=== PATIENT | male | born 1960 | race Caucasian/White ===

== ENCOUNTER 2018-10-27 20:20 | Emergency (ER) | payer BC ==
[2018-10-27 20:30] VITALS: BP 158/95
== END 2018-10-27 20:55 | disposition left against medical advice (07) ==
LOC: ED 20:20
DX: R10.9 Unspecified abdominal pain (principal); Z53.21 Procedure and treatment not carried out due to patient leaving prior to being seen by health care provider

== ENCOUNTER 2018-10-27 22:38 | Emergency (ER) | payer BC ==
[2018-10-27 23:24] LABS: Urine Appearance Cloudy; Urine Blood 1+ (Negative); Urine Color Yellow; Urine Ketones Negative (Negative); Urine Protein Negative (Negative); Urine Red Blood Cell 1+(3-5/hpf) (Absent); Urine Specific Gravity 1.024 (1.010-1.030); Urine Urobilinogen Negative (Negative); Urine White Blood Cell Trace(0-5/hpf) (Absent)
[2018-10-27] MEDS ORDERED: NS 0.9% 1000 ML* 1,000 ML IV ONE (23:49)
[2018-10-27] MEDS ORDERED: fentaNYL* 50 MCG/ML 2 ML VIAL (100 MCG VIAL) IV SLOW PU ONE (23:49)
[2018-10-27] MEDS ORDERED: Ketorolac INJ* 30 MG/ML 1 ML VIAL IV PUSH ONE (23:50)
[2018-10-27] MEDS ORDERED: Ondansetron INJ* 2 MG/ML VIAL IV ONE (23:50)
--- NOTE | 2018-10-27 23:57 | ED ---
Abdominal Pain/Male - HPI Summary HPI Summary: This patient is a 58 year old M presenting to [facility] with a chief complaint of LLQ abd pain radiating to L flank that prior to arrival. The patient rates the pain 9/10 in severity. Symptoms aggravated by nothing. Symptoms alleviated by nothing. Patient reports nausea, vomiting, and difficulty urinating. - History of Current Complaint Chief Complaint: EDFlankPain Stated Complaint: ABD PAIN Time Seen by Provider: 10/27/18 23:40 Hx Obtained From: Patient Onset/Duration: Sudden Onset, Lasting Hours, Still Present Timing: Constant Severity Initially: Severe Severity Currently: Severe Pain Intensity: 9 Pain Scale Used: 0-10 Numeric Location: Discrete At: LLQ Radiates: Yes Radiates to: Flank Aggravating Factor(s): Nothing Alleviating Factor(s): Nothing Associated Signs And Symptoms: Positive: Urinary Symptoms, Nausea, Vomiting - Allergies/Home Medications Allergies/Adverse Reactions: Allergies Allergy/AdvReac Type Severity Reaction Status Date / Time niacin Allergy Flushing Verified 10/27/18 22:46 Penicillins Allergy Hives Verified 10/27/18 22:46 PMH/Surg Hx/FS Hx/Imm Hx Previously Healthy: No Respiratory History: Reports: Hx Asthma, Other Respiratory Problems/Disorders - pt states pn x 2 in past 10 yrs History: Denies: Hx Kidney Stones Infectious Disease History: No Infectious Disease History: Denies: Traveled Outside the [place] in Last 30 Days - Family History Known Family History: Negative: Seizure Disorder - Social History Occupation: Employed Full-time Lives: With Family Alcohol Use: Unknown Hx Substance Use: No Substance Use Type: Reports: None Hx Tobacco Use: No Smoking Status (MU): Never Smoked Tobacco Review of Systems Positive: Abdominal Pain, Vomiting, Nausea Genitourinary: Other - Positive difficulty urinating All Other Systems Reviewed And Are Negative: Yes Physical Exam - Summary Physical Exam Summary: VITAL SIGNS: Reviewed. GENERAL: Patient is a well-developed and nourished male who is lying comfortable in the stretcher. Patient is not in any acute respiratory distress. HEAD AND FACE: No signs of trauma. No ecchymosis, hematomas or skull depressions. No sinus tenderness. EYES: PERRLA, EOMI x 2, No injected conjunctiva, no nystagmus. EARS: Hearing grossly intact. Ear canals and tympanic membranes are within normal limits. MOUTH: Oropharynx within normal limits. NECK: Supple, trachea is midline, no adenopathy, no JVD, no carotid bruit, no c- spine tenderness, neck with full ROM. CHEST: Symmetric, no tenderness at palpation LUNGS: Clear to auscultation bilaterally. No wheezing or crackles. CVS: Regular rate and rhythm, S1 and S2 present, no murmurs or gallops appreciated. ABDOMEN: Soft, non-tender. Distention. No rebound no guarding, and no masses palpated. Bowel sounds are normal. EXTREMITIES: FROM in all major joints, no edema, no cyanosis or clubbing. NEURO: Alert and oriented x 3. No acute neurological deficits. Speech is normal and follows commands. SKIN: Dry and warm Triage Information Reviewed: Yes Vital Signs On Initial Exam: Initial Vitals Temp Pulse Resp BP Pulse Ox 98 F 94 16 140/105 95 10/27/18 22:44 10/27/18 22:44 10/27/18 22:44 10/27/18 22:44 10/27/18 22:44 Vital Signs Reviewed: Yes Diagnostics - Vital Signs Vital Signs Temp Pulse Resp BP Pulse Ox 10/27/18 22:44 98 F 94 16 140/105 95 - Laboratory Lab Results: Lab Results 10/27/18 Range/Units 23:11 Urine Color Yellow Urine Appearance Cloudy Urine pH 5.0 (5-9) Ur Specific [place] 1.024 (1.010-1.030) Urine Protein Negative (Negative) Urine Ketones Negative (Negative) Urine Blood 1+ A (Negative) Urine Nitrate Negative (Negative) Urine Bilirubin Negative (Negative) Urine Urobilinogen Negative (Negative) Ur Leukocyte Esterase Negative (Negative) Urine WBC (Auto) Trace(0-5/hpf) (Absent) Urine RBC (Auto) 1+(3-5/hpf) A (Absent) Ur Squamous Epith Cells Present A (Absent) Urine Bacteria Absent (Absent) Urine Glucose Negative (Negative) Result Diagrams: 10/27/18 23:58 10/27/18 23:58 Lab Statement: Any lab studies that have been ordered have been reviewed, and results considered in the medical decision making process. - CT CT Abdomen and Pelvis CT Interpretation Completed By: Radiologist Summary of CT Findings: CT abdomen and pelvis reveals, per radiologist, 1. 2 mm calcified stone located in the distal left ureter. This is at the ureterovesical junction. This causes moderate left-sided hydronephrosis with perinephric stranding. 2. Multiple small calcified stones within the collecting system of both kidneys and are nonobstructing. 3. Consolidation of the right lower lung. This raises the possibility of a pneumonia. Suggest further correlation with the consideration of a two-view chest. Suggest further followup. 4. Fatty infiltration of the liver. ED physician has reviewed this radiology report. Re-Evaluation - Re-Evaluation First Eval Re-Evaluation Time: 02:35 Change: Improved Comment: Discussed results and plan of care with patient. Pt is pain free at this time Abdominal Pain Fem Course/Dx - Course Course Of Treatment: This patient is a 58 year old M presenting to [facility] with a chief complaint of LLQ abd pain radiating to L flank that prior to arrival. Physical Exam Findings: Distended abdomen. CT abdomen and pelvis reveals, per radiologist, 1. 2 mm calcified stone located in the distal left ureter. This is at the ureterovesical junction. This causes moderate left-sided hydronephrosis with perinephric stranding. 2. Multiple small calcified stones within the collecting system of both kidneys and are nonobstructing. 3. Consolidation of the right lower lung. This raises the possibility of a pneumonia. Suggest further correlation with the consideration of a two-view chest. Suggest further followup. 4. Fatty infiltration of the liver. Bloodwork and UA obtained. In the ED course the patient was given fentanyl, Toradol, fluids, Zofran, Flomax, and Levaquin. Patient will be discharged with prescription for Levaquin, Percocet, and Flomax and with follow up from PCP. The patient is agreeable with this plan. - Diagnoses Provider Diagnoses: Ureteral stone, Pneumonia, Renal colic Discharge - Sign-Out/Discharge Documenting (check all that apply): Patient Departure - Discharge home - Discharge Plan Condition: Stable Disposition: HOME Prescriptions: Levofloxacin TAB* [Levaquin TAB*] 750 mg PO DAILY #7 tab oxyCODONE/Acetamin 5/325 MG* [Percocet 5/325 TAB*] 1 tab PO Q6H PRN #14 tab MDD 4 PRN Reason: Pain Tamsulosin CAP* [Flomax CAP*] 0.4 mg PO DAILY #7 cap Patient Education Materials: Renal Colic (ED), Ureteral Stones (ED), Pneumonia (ED) Referrals: Sonal Guevara MD [Primary Care Provider] - Additional Instructions: RETURN TO THE EMERGENCY DEPARTMENT FOR NEW OR WORSENING SYMPTOMS - Attestation Statements Document Initiated by Scribe: Yes Documenting Scribe: Cecile Rivera Provider For Whom Scribe is Documenting (Include Credential): Dr. Renny Zamora MD Scribe Attestation: Cecile Herndon, scribed for Dr. Renny Zamora MD on 10/28/18 at 0239. Status of Scribe Document: Ready
[2018-10-28 00:04] LABS: ABS Basophils 0.1 10^3/ul (0-0.2); ABS Eosinophils 0.2 10^3/ul (0-0.6); ABS Lymphocytes 1.9 10^3/ul (1.0-4.8); ABS Monocytes 1.1 10^3/ul (0-0.8); ABS Neutrophils 11.8 10^3/ul (1.5-7.7); ABS Nucleated RBC 0 10^3/ul; Eosinophil % 1.1 %; Hematocrit 47 % (42-52); Hemoglobin 15.6 g/dl (14.0-18.0); Lymphocyte % 12.8 %; Mean Corpuscular HGB Conc 33 g/dl (31-36); Mean Corpuscular Hemoglobin 29 pg (27-31); Mean Corpuscular Volume 88 fL (80-94); Mean Platelet Volume 7.1 fL (7.4-10.4); Nucleated Red Blood Cells % 0; Platelet Count 289 10^3/ul (150-450); Red Blood Count 5.34 10^6/ul (4.00-5.40); Red Cell Distribution Width 13 % (10.5-15); White Blood Count 15.2 10^3/ul (3.5-10.8)
[2018-10-28 00:13] LABS: INR 0.98 (0.77-1.02)
[2018-10-28 00:26] LABS: EGFR Non-African American 48.9 (>60)
[2018-10-28] MEDS ORDERED: Levofloxacin TAB* 250 MG PO ONE (02:31)
[2018-10-28] MEDS ORDERED: Tamsulosin CAP* 0.4 MG PO ONE (02:31)
[2018-10-28 03:24] VITALS: BP 122/73
== END 2018-10-28 03:23 | disposition home or self-care (01) ==
LOC: ED 22:38
DX: N13.2 Hydronephrosis with renal and ureteral calculous obstruction (principal); J18.1 Lobar pneumonia, unspecified organism; K76.0 Fatty (change of) liver, not elsewhere classified; Z88.0 Allergy status to penicillin; Z88.8 Allergy status to other drugs, medicaments and biological substances
CPT/HCPCS: 36415; 74176; 80053; 81003; 81015; 82150; 83690; 83735; 85025; 85610; 85730; 86140; 87040; 87086; 96374; 96375; 99282; A9270-GY; J1885; J2405; J3010

== ENCOUNTER 2022-02-03 08:20 | Inpatient (IN) ==
[~2022-02-03 08:20] MED LIST: Buffered Lidocaine 1% SYRIN 1 ml INTRADERM ONE; Famotidine IV 10 MG/ML 2 ml VIAL (20 mg) IV ONE; Lactated Ringers 1000 ml BAG 1,000 ML IV SCH
[2022-02-03] MEDS ORDERED: Heparin 5000 UNITS/ML 1 mL VIAL ONE (08:26)
[2022-02-03] MEDS ORDERED: Scopolamine 1 mg/72hr PATCH ONE (08:26)
[2022-02-03] MEDS ORDERED: Famotidine IV 10 MG/ML 2 ml VIAL (20 mg) ONE (08:27)
[2022-02-03] MEDS ORDERED: Clindamycin 900 MG/D5W BAG 900 MG/50 ML BAG IVPB ONE (08:27)
[2022-02-03] MEDS ORDERED: Bupivacaine 0.5% SDV PF 30ML VIAL ONE (09:39)
[2022-02-03] MEDS ORDERED: Lidocaine 1% w EPI 1:100,000 MDV 20 ML VIAL ONE (09:39)
[2022-02-03] MEDS ORDERED: Methylene Blue 0.5 % 50 MG/10 ML AMP IV ONE (09:39)
[2022-02-03] MEDS ORDERED: Metoclopramide 5 MG/ML VIAL (10 mg) ONE (09:48)
[2022-02-03] MEDS ORDERED: Propofol 10 MG/ML 20 ML BTL ONE (09:48)
[2022-02-03] MEDS ORDERED: Etomidate 20 mg/10 ml 2 MG/ML 10 ml VIAL ONE (09:48)
[2022-02-03] MEDS ORDERED: Succinylcholine 200 mg VIAL 20 mg/ml 10 ml VIAL (200 mg) ONE (09:48)
[2022-02-03] MEDS ORDERED: Midazolam 2 mg/2 ml VIAL 1 mg/ml 2 ml VIAL (2 mg) ONE (09:49)
[2022-02-03] MEDS ORDERED: Rocuronium 50 mg VIAL 10 mg/ml 5 ml VIAL (50 mg) ONE ×2 (10:57→12:54)
[2022-02-03] MEDS ORDERED: fentaNYL 100 mcg/2 ml 50 MCG/ML VIAL ONE (11:37)
[2022-02-03] MEDS ORDERED: Prochlorperazine 5 mg/ml 2 ml VIAL (10 mg) IV PRN (12:27)
[2022-02-03] MEDS ORDERED: Ondansetron 4 mg VIAL 2 MG/ML 2 ml VIAL IV PRN (12:27)
[2022-02-03] MEDS ORDERED: oxyCODONE/Acetamin 5/325 mg TAB PO PRN (12:27)
[2022-02-03] MEDS ORDERED: Acetaminophen IV 1 GM/100 ML BAG IV ONE (12:27)
[2022-02-03] MEDS ORDERED: EPHEDrine (Pressors) 50 MG/ML VIAL ONE (12:46)
[2022-02-03] MEDS ORDERED: Sugammadex 500 MG/5 ML 5 ml VIAL IV PUSH ONE (13:05)
[2022-02-03] MEDS ORDERED: Esmolol 10 MG/ML 10 ML (100 mg) ONE (13:18)
[2022-02-03] MEDS ORDERED: HYDROcodone/ACET. 7.5/325 LIQ 15 ML UDC PO PRN (13:28)
[2022-02-03] MEDS ORDERED: Albuterol/Ipratropium NEB.SOL (2.5/0.5 MG) 3 ML NEB.SOLN INH PRN (13:31)
[2022-02-03] MEDS ORDERED: HYDROmorphone 1 MG/1 ML SYRINGE ONE (13:49)
[2022-02-03] MEDS: HYDROmorphone 1 MG/1 ML SYRINGE IV PRN ×2 (13:51→14:04)
[2022-02-03] MEDS: Lactated Ringers 1000 ml BAG 1,000 ML IV SCH ×2 (15:00→21:47)
[2022-02-03] MEDS: Ondansetron 4 mg VIAL 2 MG/ML 2 ml VIAL IV PRN ×2 (17:28→23:55)
[2022-02-03] MEDS: HYDROmorphone 0.5 MG/0.5 ML SYRINGE IV SLOW PU PRN ×2 (17:31→23:48)
[2022-02-03] MEDS: Heparin 5000 UNITS/ML 1 mL VIAL SUBCUT SCH (21:49)
[2022-02-04] MEDS: Lactated Ringers 1000 ml BAG 1,000 ML IV SCH ×2 (04:03→10:43)
[2022-02-04] MEDS: Heparin 5000 UNITS/ML 1 mL VIAL SUBCUT SCH ×2 (05:49→14:40)
[2022-02-04 11:36] VITALS: BP 113/59
[2022-02-04] MEDS ORDERED: D5W 1/2 NS KCl 20 meq 1000 ml 1,000 ML IV SCH (14:00)
== END 2022-02-04 15:15 | disposition home or self-care (01) | DRG 403 ==
LOC: AA 08:20 → SSU 14:43
PROVIDERS: ADMIT Surgery; ATTEND Surgery